=== PATIENT | female | born 1990 | race Caucasian/White ===

== ENCOUNTER → 2017-03-25 | Outpatient (CLI) | payer BC | END | disposition home or self-care (01) | LOC: C.PAPS 13:58 | PROVIDERS: ATTEND Physician Assistant | DX: Z01.419 Encounter for gynecological examination (general) (routine) without abnormal findings (principal); R87.612 Low grade squamous intraepithelial lesion on cytologic smear of cervix (LGSIL) ==

== ENCOUNTER → 2017-04-23 | Outpatient (CLI) | payer BC | LOC: C.PATH 13:16 | PROVIDERS: ATTEND Obstetrics & Gynecology | DX: R87.612 Low grade squamous intraepithelial lesion on cytologic smear of cervix (LGSIL) (principal) ==

== ENCOUNTER → 2017-08-13 | Outpatient (CLI) | payer BC, OTHER | END | disposition home or self-care (01) | LOC: C.LABBFT 11:32 | PROVIDERS: ATTEND Internal Medicine | DX: J02.9 Acute pharyngitis, unspecified (principal) ==

== ENCOUNTER → 2017-10-15 | Outpatient (CLI) | payer OTHER | END | disposition home or self-care (01) | LOC: C.PAPS 12:13 | PROVIDERS: ATTEND Obstetrics & Gynecology | DX: R87.610 Atypical squamous cells of undetermined significance on cytologic smear of cervix (ASC-US) (principal) ==

== ENCOUNTER 2023-09-06 10:31 | Inpatient (IN) ==
[2023-09-06] MEDS ORDERED: LIDOCAINE 1% LOCAL 20 ML VIAL INFIL PRN (11:08)
[2023-09-06] MEDS ORDERED: OXYTOCIN 30 UNITS/NSS 30 UNITS/500 ML BAG IV PRN ×2 (11:08→23:13)
[2023-09-06] MEDS ORDERED: ALBUTEROL HFA 8 GM INHALER INH PRN (11:10)
--- NOTE | 2023-09-06 11:27 | History & Physical Report ---
Date of Service September 06, 2023 Assessment & Plan (1) Encounter for induction of labor: Plan: GBS tx with 1x 2g cefazolin pitocin arom when indicated monitor tracing, category 1 Admission and Anticipated Discharge Date Admission Date: September 06, 2023 History of Present Illness Primary Care Provider: Destiny Em MD 32yo GP0 at 39w2d admitted for IOL for GDM. Denies SAHA, CP, SOB, N/V/D, LE pain. GBS +, RH+ +fm; -LOF, VB Allergies Allergy/AdvReac Type Severity Reaction Status Date / Time bee venom protein (honey bee) Allergy Severe Hives Verified 09/06/23 12:14 Penicillins Allergy Rash Verified 09/06/23 12:14 Home Medications Medication Instructions Recorded Confirmed Type albuterol sulfate 90 mcg/actuation 2 puffs inhalation Q4H PRN 10/12/19 09/06/23 History aerosol inhaler (ProAir HFA) shortness of breath or wheezing fluticasone furoate 100 1 inh inhalation DAILY #30 ea 02/23/22 09/06/23 Rx mcg/actuation blister powder for inhalation (Arnuity Ellipta) metoprolol succinate 25 mg 25 mg PO DAILY #90 tabs 01/25/23 09/06/23 Rx tablet,extended release 24 hr acetone (urine) test (Ketone Urine #50 ea 06/20/23 09/05/23 Rx Test strips) blood sugar diagnostic (OneTouch #150 ea 06/20/23 09/05/23 Rx Verio test strips) blood-glucose meter (OneTouch #1 ea 06/20/23 09/05/23 Rx Verio Reflect Meter) lancets 33 gauge #150 ea 06/20/23 09/05/23 Rx RSV vac, preF A and preF B(PF) 120 0.5 ml IM ONCE #1 ea 07/30/23 09/06/23 Rx mcg/0.5 mL IM solution (Abrysvo) insulin NPH isoph U-100 human 100 8 unit (0.08 mL) subcut QPM #15 mL 08/05/23 09/06/23 Rx unit/mL (3 mL) subcutaneous pen (Novolin N FlexPen) pen needle, diabetic 32 gauge x #150 ea 08/05/23 09/05/23 Rx 5/32" (BD Ultra-Fine Maureen Pen Needle) insulin lispro 100 unit/mL 30 unit (0.3 mL) subcut DAILY #15 08/09/23 09/06/23 Rx subcutaneous pen (Humalog KwikPen mL (U-100) Insulin) vits no.124-ferrous fum 1 tab PO DAILY 09/06/23 09/06/23 History 27 mg iron-folic acid 800 mcg tablet ( Vitamin) Patient History Medical History Asthma Chronic migraine History of cervical dysplasia Hordeolum externum of right eye Surgical History History of appendectomy History of colposcopy with cervical biopsy History of hand surgery History of knee surgery History of shoulder surgery Family History Mother Hypertension Father Hypertension Sister Thyroid disease Grandmother No problems noted. Grandmother (Maternal) No problems noted. 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 Other Information That Helps Us Care for You: No Feels Safe at Home: Yes Safety Concerns: Feels Safe At This Time Childhood Exposure to Second-Hand Smoke: No Diet: regular caffeine: Yes Dental Care, Regularly: Yes Physical Activity Frequency: 5-6 Times per Week Seatbelt Use: always Sunscreen Use: Yes Assistive Devices: None OB History History : 1 Full term: 0 Premature: 0 Total Number of Induced Abortions: 0 Total Number of Spontaneous Abortions: 0 Ectopics: 0 Multiple births: 0 Number of Living Children: 0 Menstrual History Last menstrual period: Yes Menstrual reliability: definite Flow: normal Menstrual regularity: regular Monthly: Yes Age at menarche: 12 On control pills at conception: No Date of positive home test: 01/05/23 Menstrual history comments: 26 day cycles. Details: Last pap 02/22/[address] Miller, WNL Review of Systems reviewed, per HPI Physical Exam Physical Exam: General: patient resting comfortably, NAD, non-toxic in appearance, answers questions appropriately. Skin: warm, dry, intact HEENT: NC/AT, anicteric sclera, conjunctiva without injection, moist mucus membranes Heart: +S1/S2, regular, no m/r/g Lungs: equal air entry bilaterally, no rales/rhonchi/wheezes Abd: +BS, soft, NT/ND, gravid uterus Cervical: 3|70|-1|; uterus posterior Ext: warm, no clubbing/cyanosis or edema Neuro: nonfocal, speech intact, no facial droop, moving all extremities on command. : FHR baseline 130-140, moderate variability, accelerations present, decelerations absent Results & Data Vital Signs (Past 12 Hours) Vital Signs Temp Pulse Resp BP 09/06/23 10:44 36.7 C 20 09/06/23 10:38 68 124/81 Code Status & VTE Plan VTE Prophylaxis Plan VTE Prophylaxis will be ordered: No Supervising Physician Co-Signing Physician Notes Resident Physician Supervision Note: I interviewed and examined the patient. Discussed with Dr. Mccallum and agree with findings and plan as documented in the note. Any exceptions or clarifications are listed here: [None] Documented By: Aneta Jackson MD, FACOG Resident Activity Tracking Resident Involvement: Resident Care Provided Care Provided: Adult Hospital Medicine
[2023-09-06] MEDS: LACTATED RINGER'S 1,000 ML IV PRN (11:46)
[2023-09-06 11:50] LABS: Hematocrit (blood only) 38.9 % (37.0-47.0); Hemoglobin 13.2 g/dl (12.0-16.0); Mean Corpuscular Hemoglobin 29.9 pg (25.0-34.0); Mean Corpuscular Hgb Conc 33.9 g/dL (32.0-36.0); Mean Platelet Volume 11.5 fL (9.4-12.4); Platelet Count 196 K/uL (130-400); RDW Coefficient of Variation 12.8 % (11.5-14.5); RDW Standard Deviation 41.8 fL (36.4-46.3); Red Blood Count 4.42 M/uL (4.20-5.40); White Blood Count 7.76 K/ul (4.8-10.8)
[2023-09-06] MEDS: OXYTOCIN 30 UNITS/NSS 30 UNITS/500 ML BAG IV PRN (11:57)
[2023-09-06] MEDS: ceFAZolin 2000MG 2,000 MG/15 ML SYR IV STA (12:38)
[2023-09-06] MEDS: fentANYL 2 MCG/ML BUPIVacaine 0.125%-NSS 100ML BAG ONE (16:51)
[2023-09-06] MEDS: fentaNYL citrate PF 100 MCG/2 ML VIAL ONE (16:52)
[2023-09-06] MEDS: SODIUM CHLORIDE 0.9% PF INJ 10 ML VIAL ONE (16:53)
[2023-09-06] MEDS: LIDOCAINE 2%/EPINEPHRINE 1:200,000 20 ML PF ONE (16:57)
[2023-09-06] MEDS: BUPIVACAINE 0.25% PF 30 ML VIAL ONE (16:57)
--- NOTE | 2023-09-06 17:00 | Anesthesiology Consultation ---
Date of Service September 06, 2023 Assessment & Plan Chart Review Chart Review: Acceptable Risk for Labor Epidural Consults Requested none History Height/Weight Height: 5 ft 4 in Weight: 75.75 kg Allergies Allergy/AdvReac Type Severity Reaction Status Date / Time bee venom protein (honey bee) Allergy Severe Hives Verified 09/06/23 12:14 Penicillins Allergy Rash Verified 09/06/23 12:14 Medications Home Medications Medication Instructions Recorded Confirmed Last Taken albuterol sulfate 90 mcg/actuation 2 puffs inhalation Q4H PRN 10/12/19 09/06/23 Unknown aerosol inhaler (ProAir HFA) shortness of breath or wheezing fluticasone furoate 100 1 inh inhalation DAILY #30 ea 02/23/22 09/06/23 Unknown mcg/actuation blister powder for inhalation (Arnuity Ellipta) metoprolol succinate 25 mg 25 mg PO DAILY #90 tabs 01/25/23 09/06/23 Unknown tablet,extended release 24 hr acetone (urine) test (Ketone Urine #50 ea 06/20/23 09/05/23 Unknown Test strips) blood sugar diagnostic (OneTouch #150 ea 06/20/23 09/05/23 Unknown Verio test strips) blood-glucose meter (OneTouch #1 ea 06/20/23 09/05/23 Unknown Verio Reflect Meter) lancets 33 gauge #150 ea 06/20/23 09/05/23 Unknown RSV vac, preF A and preF B(PF) 120 0.5 ml IM ONCE #1 ea 07/30/23 09/06/23 Unknown mcg/0.5 mL IM solution (Abrysvo) insulin NPH isoph U-100 human 100 8 unit (0.08 mL) subcut QPM #15 mL 08/05/23 09/06/23 Unknown unit/mL (3 mL) subcutaneous pen (Novolin N FlexPen) pen needle, diabetic 32 gauge x #150 ea 08/05/23 09/05/23 Unknown 32" (BD Ultra-Fine Maureen Pen Needle) insulin lispro 100 unit/mL 30 unit (0.3 mL) subcut DAILY #15 08/09/23 09/06/23 Unknown subcutaneous pen (Humalog KwikPen mL (U-100) Insulin) vits no.124-ferrous fum 1 tab PO DAILY 09/06/23 09/06/23 Unknown 27 mg iron-folic acid 800 mcg tablet ( Vitamin) Active Medications Generic Name Dose Route Start Last Admin Trade Name Martínez PRN Reason Stop Dose Admin Oxytocin 30 units in 500 mls @ 6 mls/hr 09/06/23 11:08 09/06/23 13:00 Pitocin 30 Units/Nss IV 09/08/23 11:07 0.36 units/hr .Q24H PRN 6 mls/hr Labor Induction/Augmentation Titration Protocol 0.36 UNITS/HR Lactated Ringer's 1,000 mls @ 125 mls/hr 09/06/23 11:08 09/06/23 16:41 Lr IV 09/08/23 11:07 999 mls/hr .Q8H PRN Administration L&D Protocol Protocol Past Medical History Medical History Asthma Chronic migraine History of cervical dysplasia Hordeolum externum of right eye Past Family History Family History Mother Hypertension Father Hypertension Sister Thyroid disease Grandmother No problems noted. Grandmother (Maternal) No problems noted. Grandmother (Maternal) Hepatic cirrhosis Denies family history of Ovarian cancer Prostate cancer Myocardial infarction Breast cancer Colorectal cancer Uterine cancer Past Surgical History Surgical History History of appendectomy History of colposcopy with cervical biopsy History of hand surgery History of knee surgery History of shoulder surgery Social History Smoking Status: Never smoker Do You Dip or Chew Tobacco: No Hx Alcohol Use: Yes (occassional ) Hx Substance Use: No substance use type: does not use Physical Exam Vital Signs Last Vital Signs Temp 36.7 C 09/06/23 16:01 Pulse 78 09/06/23 16:57 Resp 18 09/06/23 16:01 BP 119/71 09/06/23 16:55 Pulse Ox 98 09/06/23 16:57 Testing Laboratory Results 09/06/23 11:32 09/06/23 09/06/23 14:29 11:28 POC Glucose 81 89
[2023-09-06] MEDS ORDERED: LIDOCAINE 2% MPF LOCAL 5 ML VIAL EPI PRN (17:03)
[2023-09-06] MEDS ORDERED: ePHEDrine sulfate 50 MG/ML AMP IV PRN (17:03)
[2023-09-06] MEDS ORDERED: NALOXONE HCL 0.4 MG/1 ML VIAL/CARP IV PRN (17:03)
[2023-09-06] MEDS ORDERED: fentaNYL citrate PF 100 MCG/2 ML VIAL EPI PRN (17:03)
[2023-09-06] MEDS ORDERED: BUPIVACAINE 0.25% PF 30 ML VIAL EPI PRN (17:03)
[2023-09-06] MEDS ORDERED: fentANYL 2 MCG/ML BUPIVacaine 0.125%-NSS 100ML BAG EPI PRN (17:03)
[2023-09-06] MEDS ORDERED: SODIUM CHLORIDE 0.9% PF INJ 10 ML VIAL EPI PRN (17:03)
[2023-09-06] MEDS ORDERED: NALBUPHINE HCL 5 MG in SYRINGE 0 ML IV PRN (17:03)
[2023-09-06] MEDS ORDERED: ROPIVACAINE 0.5% PF 5 MG/ML 20 ML VIAL EPI PRN (17:03)
[2023-09-06] MEDS ORDERED: diphenhydrAMINE 50 MG/ML VIAL IV PRN (17:03)
[2023-09-06] MEDS ORDERED: NALOXONE HCL 1 MG in SODIUM CHLORIDE 0.9% 1,000 ML IV PRN (17:03)
[2023-09-06] MEDS: ePHEDrine sulfate 50 MG/ML AMP ONE (18:58)
[2023-09-06] MEDS: fentaNYL citrate PF 100 MCG/2 ML VIAL EPI STA (18:58)
[2023-09-06] MEDS: BUPIVACAINE 0.25% PF 30 ML VIAL EPI STA (18:58)
[2023-09-06] MEDS: SODIUM CHLORIDE 0.9% PF INJ 10 ML VIAL EPI STA (18:59)
[2023-09-06] MEDS: LIDOCAINE 2%/EPINEPHRINE 1:200,000 20 ML PF EPI STA (18:59)
[2023-09-06] MEDS: ceFAZolin 2000MG 2,000 MG/15 ML SYR IV SCH (20:27)
[2023-09-06] MEDS ORDERED: HYDROCORTISONE ACETATE 25 MG SUPP PR PRN (23:13)
[2023-09-06] MEDS ORDERED: BENZOCAINE 20% SPRY 85 APPLN/85 GM CAN EXT PRN (23:13)
[2023-09-06] MEDS ORDERED: ACETAMINOPHEN 325 MG TAB PO PRN (23:13)
[2023-09-06] MEDS ORDERED: oxyCODONE/ACETAMINOPHEN 5mg/325mg TAB PO PRN (23:13)
--- NOTE | 2023-09-06 23:18 | Delivery Summary ---
Vaginal Delivery Summary Date of Service September 06, 2023 Vaginal Delivery Summary and 2nd Degree LAC (vaginal) Patient is a 32-year-old 1 P0 female EDC 09/11/2023 who presents for induction because of gestational diabetes on insulin. Pitocin induction was begun and membranes were ruptured for small amount of clear fluid. She received effective epidural analgesia. She progressed to complete dilation and pushed effectively over intact perineum for delivery of a viable male infant. After the head was delivered there was a tight nuchal cord which was clamped and cut prior to delivering the rest of the . The anterior shoulder and arm then delivered next. The rest the was then delivered without maternal effort. He was placed on the mother's abdomen for further attention and drying. After stimulation, he was then crying and moving all 4 limbs. After cord blood was obtained, the placenta was expressed intact with a three-vessel cord. Dilute Pitocin and fundal massage were used to control the bleeding. A second-degree vaginal laceration was repaired with 3-0 chromic in the standard fashion. QBL was 203 cc. Mother and infant were doing well after delivery. [facility] [place]aginal Delivery Charge Delivery Type Details: and 2nd Degree LAC (vaginal)
--- NOTE | 2023-09-06 23:19 | Anesthesia Procedure Note ---
Date of Service September 06, 2023 Anesthesia Post Epidural Note Vital Signs Vital Signs: Temp Pulse Resp BP Pulse Ox 36.7 C 73 18 135/59 L 98 09/06/23 19:30 09/06/23 23:18 09/06/23 21:30 09/06/23 23:18 09/06/23 23:17 Pain Intensity Right Abdomen: Pain Intensity: 3 Notes Mental Status: alert / awake / arousable Nausea / Vomiting: adequately controlled Pain: adequately controlled Airway Patency, RR, SpO2: stable & adequate BP & HR: stable & adequate Hydration State: stable & adequate Neuraxial Anesthesia: was administered and sensory block is resolving Anesthetic Complications: no major complications apparent and Pt Satisfied with anesthetic care Epidural: Removed without complications and With tip intact
--- NOTE | 2023-09-07 06:55 | Obstetrical Progress Note ---
Date of Service September 07, 2023 Assessment & Plan (1) care and examination: Plan: Doing well encourage ambulation pain control anticipate dc tomorrow Admission and Anticipated Discharge Date Admission Date: September 06, 2023 Supervising Physician Co-Signing Physician Notes Resident Physician Supervision Note: I interviewed and examined the patient. Discussed with Dr. Mccallum and agree with findings and plan as documented in the note. Any exceptions or clarifications are listed here: [None] Documented By: Aneta Jackson MD, FACOG Subjective 32 yo post day 1 s/p Ambulation: ambulating normally Voiding: no voiding problems Passing Gas:: Yes Diet Tolerance:: regular diet Lochia:: Small Feeding Type:: breast feeding Current Pain Level: mild Resting comfortably this AM in NAD. Denies SAHA, CP, SOB, N/V/D, LE pain/swelling. Review of Systems Review of Systems: reviewed, per HPI Physical Exam Physical Exam: General: patient resting comfortably, NAD, non-toxic in appearance, answers questions appropriately. Skin: warm, dry, intact HEENT: NC/AT, anicteric sclera, conjunctiva without injection, moist mucus membranes. Heart: +S1/S2, regular, no m/r/g Lungs: equal air entry bilaterally, no rales/rhonchi/wheezes Abd: +BS, soft, NT/ND, uterine fundus firm at umbilicus Ext: warm, no clubbing/cyanosis or edema, Ankit's neg. Neuro: nonfocal, speech intact, no facial droop, moving all extremities on command. Results & Data Vital Signs (Past 12 Hours) Vital Signs Temp Pulse Pulse Resp BP BP Pulse Ox 09/07/23 04:08 36.9 C 67 16 112/69 98 09/07/23 01:52 37.0 C 75 16 122/71 97 09/07/23 01:03 85 115/63 09/07/23 00:48 88 113/63 09/07/23 00:33 93 H 117/71 09/07/23 00:18 81 113/64 09/07/23 00:03 84 116/63 09/06/23 23:48 87 09/06/23 23:48 124/79 09/06/23 23:37 96 09/06/23 23:37 83 09/06/23 23:33 96 H 09/06/23 23:33 122/68 09/06/23 23:32 96 09/06/23 23:32 97 H 09/06/23 23:27 97 09/06/23 23:27 81 09/06/23 23:22 97 09/06/23 23:22 80 09/06/23 23:18 73 09/06/23 23:18 135/59 L 09/06/23 23:17 98 09/06/23 23:17 76 09/06/23 23:12 98 09/06/23 23:12 78 09/06/23 23:07 97 09/06/23 23:07 91 H 09/06/23 23:04 136/76 09/06/23 23:02 98 09/06/23 23:02 89 09/06/23 22:57 96 09/06/23 22:57 88 09/06/23 22:52 98 09/06/23 22:52 90 09/06/23 22:48 94 H 09/06/23 22:48 133/71 09/06/23 22:47 97 09/06/23 22:47 100 H 09/06/23 22:42 95 09/06/23 22:42 112 H 09/06/23 22:37 98 09/06/23 22:37 105 H 09/06/23 22:34 92 H 09/06/23 22:34 154/86 H 09/06/23 22:32 99 09/06/23 22:32 114 H 09/06/23 22:32 90 09/06/23 22:32 101 H 09/06/23 22:30 20 09/06/23 22:30 20 09/06/23 22:27 99 09/06/23 22:27 119 H 09/06/23 22:22 100 09/06/23 22:22 91 H 09/06/23 22:21 93 09/06/23 22:21 108 H 09/06/23 22:20 100 H 09/06/23 22:20 136/95 09/06/23 22:17 98 09/06/23 22:17 114 H 09/06/23 22:14 90 09/06/23 22:14 103 H 09/06/23 22:12 99 09/06/23 22:12 95 H 09/06/23 22:07 100 09/06/23 22:07 123 H 09/06/23 22:03 99 H 09/06/23 22:03 133/78 09/06/23 22:02 99 09/06/23 22:02 94 H 09/06/23 22:00 20 09/06/23 22:00 20 09/06/23 21:57 93 09/06/23 21:57 104 H 09/06/23 21:52 99 09/06/23 21:52 109 H 09/06/23 21:47 99 09/06/23 21:47 107 H 09/06/23 21:42 100 09/06/23 21:42 91 H 09/06/23 21:37 98 09/06/23 21:37 73 09/06/23 21:35 88 09/06/23 21:35 142/62 H 09/06/23 21:32 98 09/06/23 21:32 70 09/06/23 21:30 18 09/06/23 21:30 18 09/06/23 21:27 99 09/06/23 21:27 66 09/06/23 21:22 97 09/06/23 21:22 72 09/06/23 21:18 62 09/06/23 21:18 108/61 09/06/23 21:17 98 09/06/23 21:17 64 09/06/23 21:12 97 09/06/23 21:12 68 09/06/23 21:07 98 09/06/23 21:07 74 09/06/23 21:04 62 09/06/23 21:04 109/65 09/06/23 21:02 98 09/06/23 21:02 79 09/06/23 21:00 18 09/06/23 21:00 18 09/06/23 20:57 98 09/06/23 20:57 78 09/06/23 20:52 97 09/06/23 20:52 73 09/06/23 20:49 65 09/06/23 20:49 106/62 09/06/23 20:47 97 09/06/23 20:47 68 09/06/23 20:43 91 09/06/23 20:43 79 09/06/23 20:42 95 09/06/23 20:42 78 09/06/23 20:37 99 09/06/23 20:37 64 09/06/23 20:32 97 09/06/23 20:32 78 09/06/23 20:30 18 09/06/23 20:30 18 09/06/23 20:27 97 09/06/23 20:27 79 09/06/23 20:22 97 09/06/23 20:22 76 09/06/23 20:17 96 09/06/23 20:17 83 09/06/23 20:12 98 09/06/23 20:12 75 09/06/23 20:07 98 09/06/23 20:07 76 09/06/23 20:04 79 09/06/23 20:04 119/73 09/06/23 20:02 98 09/06/23 20:02 68 09/06/23 20:00 18 09/06/23 20:00 18 09/06/23 19:57 98 09/06/23 19:57 67 09/06/23 19:52 98 09/06/23 19:52 72 09/06/23 19:49 71 09/06/23 19:49 118/80 09/06/23 19:47 98 09/06/23 19:47 63 09/06/23 19:42 98 09/06/23 19:42 64 09/06/23 19:37 98 09/06/23 19:37 84 09/06/23 19:34 71 09/06/23 19:34 123/80 09/06/23 19:32 98 09/06/23 19:32 71 09/06/23 19:30 18 09/06/23 19:30 36.7 C 18 09/06/23 19:27 98 09/06/23 19:27 65 09/06/23 19:22 99 09/06/23 19:22 66 09/06/23 19:19 69 09/06/23 19:19 126/77 09/06/23 19:17 99 09/06/23 19:17 71 09/06/23 19:12 100 09/06/23 19:12 67 09/06/23 19:07 100 09/06/23 19:07 75 09/06/23 19:04 73 09/06/23 19:04 122/77 09/06/23 19:02 98 09/06/23 19:02 65 09/06/23 18:57 99 09/06/23 18:57 64 O2 Del Method 09/07/23 04:08 Room Air 09/07/23 01:52 Room Air 09/07/23 01:03 09/07/23 00:48 09/07/23 00:33 09/07/23 00:18 09/07/23 00:03 09/06/23 23:48 09/06/23 23:48 09/06/23 23:37 09/06/23 23:37 09/06/23 23:33 09/06/23 23:33 09/06/23 23:32 09/06/23 23:32 09/06/23 23:27 09/06/23 23:27 09/06/23 23:22 09/06/23 23:22 09/06/23 23:18 09/06/23 23:18 09/06/23 23:17 09/06/23 23:17 09/06/23 23:12 09/06/23 23:12 09/06/23 23:07 09/06/23 23:07 09/06/23 23:04 09/06/23 23:02 09/06/23 23:02 09/06/23 22:57 09/06/23 22:57 09/06/23 22:52 09/06/23 22:52 09/06/23 22:48 09/06/23 22:48 09/06/23 22:47 09/06/23 22:47 09/06/23 22:42 09/06/23 22:42 09/06/23 22:37 09/06/23 22:37 09/06/23 22:34 09/06/23 22:34 09/06/23 22:32 09/06/23 22:32 09/06/23 22:32 09/06/23 22:32 09/06/23 22:30 09/06/23 22:30 09/06/23 22:27 09/06/23 22:27 09/06/23 22:22 09/06/23 22:22 09/06/23 22:21 09/06/23 22:21 09/06/23 22:20 09/06/23 22:20 09/06/23 22:17 09/06/23 22:17 09/06/23 22:14 09/06/23 22:14 09/06/23 22:12 09/06/23 22:12 09/06/23 22:07 09/06/23 22:07 09/06/23 22:03 09/06/23 22:03 09/06/23 22:02 09/06/23 22:02 09/06/23 22:00 09/06/23 22:00 09/06/23 21:57 09/06/23 21:57 09/06/23 21:52 09/06/23 21:52 09/06/23 21:47 09/06/23 21:47 09/06/23 21:42 09/06/23 21:42 09/06/23 21:37 09/06/23 21:37 09/06/23 21:35 09/06/23 21:35 09/06/23 21:32 09/06/23 21:32 09/06/23 21:30 09/06/23 21:30 09/06/23 21:27 09/06/23 21:27 09/06/23 21:22 09/06/23 21:22 09/06/23 21:18 09/06/23 21:18 09/06/23 21:17 09/06/23 21:17 09/06/23 21:12 09/06/23 21:12 09/06/23 21:07 09/06/23 21:07 09/06/23 21:04 09/06/23 21:04 09/06/23 21:02 09/06/23 21:02 09/06/23 21:00 09/06/23 21:00 09/06/23 20:57 09/06/23 20:57 09/06/23 20:52 09/06/23 20:52 09/06/23 20:49 09/06/23 20:49 09/06/23 20:47 09/06/23 20:47 09/06/23 20:43 09/06/23 20:43 09/06/23 20:42 09/06/23 20:42 09/06/23 20:37 09/06/23 20:37 09/06/23 20:32 09/06/23 20:32 09/06/23 20:30 09/06/23 20:30 09/06/23 20:27 09/06/23 20:27 09/06/23 20:22 09/06/23 20:22 09/06/23 20:17 09/06/23 20:17 09/06/23 20:12 09/06/23 20:12 09/06/23 20:07 09/06/23 20:07 09/06/23 20:04 09/06/23 20:04 09/06/23 20:02 09/06/23 20:02 09/06/23 20:00 09/06/23 20:00 09/06/23 19:57 09/06/23 19:57 09/06/23 19:52 09/06/23 19:52 09/06/23 19:49 09/06/23 19:49 09/06/23 19:47 09/06/23 19:47 09/06/23 19:42 09/06/23 19:42 09/06/23 19:37 09/06/23 19:37 09/06/23 19:34 09/06/23 19:34 09/06/23 19:32 09/06/23 19:32 09/06/23 19:30 09/06/23 19:30 09/06/23 19:27 09/06/23 19:27 09/06/23 19:22 09/06/23 19:22 09/06/23 19:19 09/06/23 19:19 09/06/23 19:17 09/06/23 19:17 09/06/23 19:12 09/06/23 19:12 09/06/23 19:07 09/06/23 19:07 09/06/23 19:04 09/06/23 19:04 09/06/23 19:02 09/06/23 19:02 09/06/23 18:57 09/06/23 18:57 Resident Activity Tracking Resident Involvement: Resident Care Provided Care Provided: Adult Hospital Medicine
[2023-09-07 07:30] LABS: Hematocrit (blood only) 34.4 % (37.0-47.0); Hemoglobin 11.9 g/dl (12.0-16.0); Mean Corpuscular Hgb Conc 34.6 g/dL (32.0-36.0); Mean Corpuscular Volume 86.6 fL (80.0-100.0); Platelet Count 170 K/uL (130-400); RDW Standard Deviation 40.8 fL (36.4-46.3); Red Blood Count 3.97 M/uL (4.20-5.40); White Blood Count 12.77 K/ul (4.8-10.8)
[2023-09-07] MEDS: METOPROLOL SUCC 25MG EXT REL TAB PO SCH (08:18)
[2023-09-07] MEDS: DOCUSATE SODIUM 100 MG CAP PO SCH (08:18)
[2023-09-07] MEDS: PRENATAL VITAMIN 1 TAB PO SCH (08:20)
[2023-09-07] MEDS: FLUTICASONE FUROATE 100MCG 14 PUFFS/INHALER INH SCH (08:21)
[2023-09-07] MEDS: IBUPROFEN 600 MG TAB PO PRN (17:25)
[2023-09-07] MEDS: DIPHTHER/TETAN/PERTUS Vaccine (Tdap, Adol/Adult) 0.5mL IM ONE (18:43)
[2023-09-07] MEDS: bisacodyL 5 MG TABEC PO SCH (19:51)
[2023-09-08 06:56] LABS: Hemoglobin 11.9 g/dl (12.0-16.0)
--- NOTE | 2023-09-08 09:35 | Obstetrical Progress Note ---
Date of Service September 08, 2023 Assessment & Plan (1) care and examination: Day 2 status post vaginal delivery. Patient doing well. Stable for discharge Subjective Ambulation: ambulating normally Voiding: no voiding problems Passing Gas:: Yes Diet Tolerance:: regular diet Lochia:: Moderate Feeding Type:: breast feeding Denies calf tenderness Physical Exam Constitutional WD/WN, vitals as above Respiratory normal respiratory effort; no respiratory distress and no labored breathing Genitourinary OB Exam Abdomen: + fundal height Fundus: + firm and + relation to umbilicus (Below); not tender or not boggy Results & Data Vital Signs (Past 12 Hours) Vital Signs Temp Pulse Pulse Resp BP Pulse Ox O2 Del Method 09/08/23 07:35 36.8 C 59 L 16 102/64 97 Room Air 09/07/23 23:16 36.8 C 63 14 108/67 Room Air
[2023-09-08] MEDS: HYDROCORTISONE 1% CRM 30 GM TUBE EXT PRN (12:41)
[2023-09-08] MEDS ORDERED: bisacodyL 10 MG SUPP PR PRN (23:13)
== END 2023-09-08 19:24 | disposition home or self-care (01) | DRG 806 ==
LOC: 4S1 10:31 → 4E2 09-07 01:32